=== PATIENT | male | born 1980 | race Caucasian/White ===

== ENCOUNTER 2021-11-23 01:29 | Inpatient (IN) | payer SELFPAY ==
[2021-11-23] VITALS (598 sets, daily range): BP systolic 123–151; BP diastolic 84–97; PULSE 56–78; TEMP 97.5–98.9; O2SAT 93–100
[~2021-11-23] VITALS: Ht 180.3 cm; Wt 122.9 kg
[~2021-11-23 01:29] MED LIST: NITROSTAT0.4 MG/TAB SL; NOVOLIN 70/30 710 ML SQ; ZESTRIL 5MG5 MG PO
[2021-11-23 02:02] LABS: BASO % 0.5 % (0.0-2.0); EOS # 0.1 K/mm3 (0.0-0.7); EOS % 1.9 % (0.0-4.0); GRAN # 4.6 K/mm3 (1.4-6.5); GRAN % 60.4 % (42.2-75.2); HEMATOCRIT 44.7 % (42.0-52.0); HEMOGLOBIN 15.6 g/dl (13.5-18.0); LYMPH # 2.1 K/mm3 (1.2-3.4); LYMPH % 27.4 % (20.0-51.0); MEAN CELL VOLUME 83 fl (80.0-100.0); MEAN CORPUSCULAR HEMOGLOBIN 29 pg (27-31); MEAN CORPUSCULAR HGB CONC 35 g/dl (33.0-37.0); MEAN PLATELET VOLUME 9.4 fl (7.4-10.4); MONO # 0.7 K/mm3 (0.1-0.6); MONO % 8.6 % (1.7-9.3); PLATELET COUNT 231 K/mm3 (130-400); RED BLOOD COUNT 5.36 M/mm3 (4.20-5.60); REDCELL DISTRIBUTION WIDTH-CV 12.4 % (11.5-14.5)
[2021-11-23 02:09] LABS: PROTHROMBIN TIME 11.7 SECONDS (9.7-12.8)
[2021-11-23 02:22] LABS: ALANINE AMINOTRANSFERASE 21 U/L (0-55); ALBUMIN 3.8 gm/dL (3.5-5.0); ALKALINE PHOSPHATASE 92 U/L (40-150); ANION GAP 11 mmol/L (7-16); AST,SGOT 11 U/L (5-34); BILIRUBIN,TOTAL 0.4 mg/dL (0.2-1.2); BLOOD UREA NITROGEN 12 mg/dL (9-21); CALCIUM 8.7 mg/dL (8.4-10.2); CARBON DIOXIDE 21 mmol/L (22-29); CHLORIDE 103 mmol/L (98-107); CREATININE, serum 1.09 mg/dL (0.72-1.25); GLUCOSE 375 mg/dL (70-99); POTASSIUM 4.1 mmol/L (3.5-4.5); SODIUM 135 mmol/L (136-145); TOTAL PROTEIN 6.8 gm/dL (6.2-8.1)
[2021-11-23 02:28] LABS: TROPONIN-I < 0.010 ng/mL (0.00-0.033)
[2021-11-23 05:02] LABS: MAGNESIUM 1.8 mg/dL (1.6-2.6)
--- NOTE | 2021-11-23 05:06 | NUR ---
PATIENT ARRIVED AT 0506 ASSISTED TO BED WITH SBA CONNECTED TO MONITORS AND ORIENTED TO ROOM. SEE ADMISSION ASSESSMENT FOR REST OF DETAILS
--- NOTE | 2021-11-23 09:08 | NUR ---
Wire Communications Engineer met with patient to complete initial intake. Patient lives in [place] with his life partner, Mile (ph#[phone]). Patient does not have an established primary care physician as he does not have health insurance at this time. Patient is agreeable to have appointment made at [facility] at time of discharge. Patient obtains any needed medications from [facility] and reports the only DME he uses is his testing equipment for his diabetes. Patient is independent with ADLS and plans to return home at time of discharge. Per previous discharge planning notes, patient completed a DPOA-HC designating Mile, however it did not get scanned into EMR. SW requested patient bring in another copy so SW can take it to medical records. Patient advised he will see if Mile can bring in a copy. Discharge Plan: Home, needs appointment at [facility]
--- NOTE | 2021-11-23 21:44 | NUR ---
BEDSIDE SHIFT REPORT RECEIVED FROM BUSTER QUEZADA. PT RESTING IN BED EATING. NO LINES CURRENTLY RUNNING. VSS, NO ACUTE CHANGES OVER DAY SHIFT
[2021-11-24] VITALS (56 sets, daily range): BP systolic 92–145; BP diastolic 58–88; PULSE 44–68; TEMP 98.1–98.6; O2SAT 94–100
--- NOTE | 2021-11-24 09:31 | NUR ---
Model [employer] made an appointment with the [facility] for 12/10/21 at 1630. SW provided appointment date and time along with contact information for [facility] to the patient and his life partner. Appointment also placed in discharge orders. Discharge Plan: Home
[2021-11-24] MEDS ORDERED: LIPITOR20 MG PO (09:59)
[2021-11-24] MEDS ORDERED: PLAVIX 75MG TAB75 MG PO (09:59)
[2021-11-24] MEDS ORDERED: ZESTRIL 10MG10 MG PO (10:00)
[2021-11-24] MEDS ORDERED: ASPIRIN 81M81 MG/TA2 PO (10:00)
--- NOTE | 2021-11-24 10:00 | NUR ---
PT IS ALERT AND ORIENTED THIS AM WITHOUT COMPLAINT. PATIENT HAS A SLIGHT LEFT FACIAL DROOP HOWEVER NO OTHER DEFICITS NOTED AT THIS TIME. VSS.
--- NOTE | 2021-11-24 10:22 | NUR ---
Initial visit; Patient and his thanked Program Coordinator Executive Education for looking in on him and offering God's blessings.
--- NOTE | 2021-11-24 10:48 | NUR ---
1033- PT DISCHARGED HOME. AMBULATORY. NO COMPLAINTS. EDUCATIONS AND DISCHARGE INFORMATION IN HAND.
== END 2021-11-24 10:33 | disposition home or self-care (01) | DRG 62 ==
LOC: COL.ER 01:29 → ICU 04:40
PROVIDERS: Emergency Medicine; Nurse Practitioner Family; ADMIT Internal Medicine
DX: I63.9 Cerebral infarction, unspecified (principal); G81.94 Hemiplegia, unspecified affecting left nondominant side; E11.9 Type 2 diabetes mellitus without complications; E66.9 Obesity, unspecified; R29.704 NIHSS score 4; I10 Essential (primary) hypertension; Z68.38 Body mass index [BMI] 38.0-38.9, adult
CPT/HCPCS: 99223-AI; 99239; A9575; J1815; J3101; J7030; Q9967

== ENCOUNTER 2022-01-23 13:49 | Emergency (ER) | payer SELFPAY ==
[~2022-01-23] VITALS: Ht 180.3 cm; Wt 115.5 kg
[~2022-01-23 13:49] MED LIST changes: +ASPIRIN 81M81 MG/TA2 PO; +LIPITOR20 MG PO; +PLAVIX 75MG TAB75 MG PO; +ZESTRIL 10MG10 MG PO
[2022-01-23 14:00] VITALS: TEMP 98.1
[2022-01-23 15:13] VITALS: BP 144/79; PULSE 96
== END 2022-01-23 15:10 | disposition home or self-care (01) ==
LOC: COL.ER 13:49
DX: S83.92XA Sprain of unspecified site of left knee, initial encounter (principal); E66.9 Obesity, unspecified; Z98.890 Other specified postprocedural states; Z68.35 Body mass index [BMI] 35.0-35.9, adult; Z28.310 Unvaccinated for COVID-19; X50.1XXA Overexertion from prolonged static or awkward postures, initial encounter; W10.9XXA Fall (on) (from) unspecified stairs and steps, initial encounter; Y93.01 Activity, walking, marching and hiking
CPT/HCPCS: J1885; J2360

== ENCOUNTER 2022-02-27 17:00 | Emergency (ER) | payer SELFPAY ==
[~2022-02-27] VITALS: Ht 180.3 cm; Wt 118.2 kg
[2022-02-27 17:03] VITALS: TEMP 98.8
[2022-02-27 17:34] LABS: BASO # 0.1 K/mm3 (0.0-0.2); BASO % 0.6 % (0.0-2.0); EOS # 0.7 K/mm3 (0.0-0.7); EOS % 5.6 % (0.0-4.0); GRAN # 8.8 K/mm3 (1.4-6.5); GRAN % 73.7 % (42.2-75.2); HEMOGLOBIN 17.4 g/dl (13.5-18.0); LYMPH # 1.6 K/mm3 (1.2-3.4); LYMPH % 13.1 % (20.0-51.0); MEAN CELL VOLUME 89 fl (80.0-100.0); MEAN CORPUSCULAR HEMOGLOBIN 29 pg (27-31); MEAN CORPUSCULAR HGB CONC 33 g/dl (33.0-37.0); MEAN PLATELET VOLUME 9.2 fl (7.4-10.4); MONO # 0.7 K/mm3 (0.1-0.6); MONO % 5.9 % (1.7-9.3); PLATELET COUNT 261 K/mm3 (130-400); RED BLOOD COUNT 5.93 M/mm3 (4.20-5.60); REDCELL DISTRIBUTION WIDTH-CV 12.7 % (11.5-14.5)
[2022-02-27 17:50] LABS: ALBUMIN 4.3 gm/dL (3.5-5.0); BILIRUBIN,TOTAL 0.7 mg/dL (0.2-1.2); CALCIUM 10.4 mg/dL (8.4-10.2); CREATININE, serum 0.96 mg/dL (0.72-1.25); POTASSIUM 3.9 mmol/L (3.5-4.5)
[2022-02-27] MEDS ORDERED: PROTONIX20 MG PO (17:52)
[2022-02-27] MEDS ORDERED: GLUCOPHAGE500 MG/TAB PO (17:53)
[2022-02-27 17:55] LABS: HEMATOCRIT 52.6 % (42.0-52.0)
[2022-02-27 17:57] LABS: TROPONIN-I 0.012 ng/mL (0.00-0.033)
[2022-02-27 18:46] VITALS: BP 147/97; PULSE 82
== END 2022-02-27 18:57 | disposition home or self-care (01) ==
LOC: COL.ER 17:00
PROVIDERS: Physician Assistant
DX: R07.89 Other chest pain (principal); E66.9 Obesity, unspecified; Z28.310 Unvaccinated for COVID-19
CPT/HCPCS: J1885; J2270; J7030

== ENCOUNTER 2023-09-30 13:21 | Emergency (ER) | payer SELFPAY ==
[~2023-09-30] VITALS: Ht 177.8 cm; Wt 121.4 kg
[~2023-09-30 13:21] MED LIST changes: +FLEXERIL 1010 MG/TAB PO; +GLUCOPHAGE500 MG/TAB PO; +NAPROSYN500 MG PO; +PROTONIX20 MG PO
[2023-09-30 13:24] VITALS: TEMP 100
[2023-09-30] MEDS ORDERED: NS 1,000 ML IV ONE (13:45)
[2023-09-30] MEDS ORDERED: Ondansetron 4 MG/2 ML VIAL IV ONE (13:45)
[2023-09-30 14:11] LABS: BASO % 0.3 % (0.0-2.0); EOS # 0.3 K/mm3 (0.0-0.7); EOS % 3.3 % (0.0-4.0); GRAN # 5.3 K/mm3 (1.4-6.5); GRAN % 69.9 % (42.2-75.2); HEMATOCRIT 48.1 % (42.0-52.0); HEMOGLOBIN 16.6 g/dl (13.5-18.0); LYMPH # 1.1 K/mm3 (1.2-3.4); LYMPH % 14.2 % (20.0-51.0); MEAN CELL VOLUME 85 fl (80.0-100.0); MEAN CORPUSCULAR HEMOGLOBIN 29 pg (27-31); MEAN CORPUSCULAR HGB CONC 35 g/dl (33.0-37.0); MEAN PLATELET VOLUME 9.6 fl (7.4-10.4); MONO # 0.9 K/mm3 (0.1-0.6); MONO % 11.9 % (1.7-9.3); PLATELET COUNT 218 K/mm3 (130-400); RED BLOOD COUNT 5.66 M/mm3 (4.20-5.60); REDCELL DISTRIBUTION WIDTH-CV 12.8 % (11.5-14.5)
[2023-09-30 14:45] LABS: ALBUMIN 3.5 gm/dL (3.5-5.0); BILIRUBIN,TOTAL 0.6 mg/dL (0.2-1.2); CREATININE, serum 0.83 mg/dL (0.72-1.25); POTASSIUM 3.9 mmol/L (3.5-4.5)
[2023-09-30 14:52] LABS: TROPONIN-I 0.018 ng/mL (0.00-0.033)
[2023-09-30 14:59] LABS: TOTAL PROTEIN 7.6 gm/dL (6.2-8.1)
[2023-09-30] MEDS ORDERED: TESSALON P100 MG/CAP PO (15:30)
[2023-09-30 15:57] VITALS: BP 160/94; PULSE 97
== END 2023-09-30 15:58 | disposition home or self-care (01) ==
LOC: COL.ER 13:21
PROVIDERS: Nurse Practitioner
DX: J10.1 Influenza due to other identified influenza virus with other respiratory manifestations (principal); F17.220 Nicotine dependence, chewing tobacco, uncomplicated; E11.9 Type 2 diabetes mellitus without complications; Z79.4 Long term (current) use of insulin; Z79.51 Long term (current) use of inhaled steroids
CPT/HCPCS: J2405; J7030